=== PATIENT | female | born 1975 | race Caucasian/White ===

== ENCOUNTER 2017-07-16 12:56 | Outpatient (CLI) | payer OTHER ==
--- NOTE | 2017-07-16 16:48 | ULT ---
RIGHT BREAST DIAGNOSTIC ULTRASOUND: Date: 07/16/17 INDICATION: History of palpable abnormality right breast. FINDINGS: Within the right breast 10 o'clock position, 2.0 cm from the nipple, in the region of palpable inter est, there is a lobulated, hypoechoic, irregular mass measuring approximately 3.5 x 1.5 cm. There is an enlarged lymph node within the right axillary region measuring 2.1 x 1.4 cm. IMPRESSION: BIRADS 5: Highly Suggestive of Malignancy Recommend ultrasound guided core biopsy of the right breast lesion, as well as right axillary lymph node. Findings were called to Dr. Alvarez at 1400 hours on 07/16/17. CODE CR. POS: [facility]
--- NOTE | 2017-07-16 16:55 | ULT ---
ULTRASOUND GUIDED RIGHT BREAST MASS BIOPSY AND RIGHT AXILLARY LYMPH NODE BIOPSY: Date: 07/16/17 TECHNIQUE: Informed consent was obtained. The right breast mass within the 10 o'clock position was localized. S ite was prepped and draped in the usual sterile fashion. Buffered 1% lidocaine was administered to t he overlying subcutaneous tissues. A small incision was made into the skin and under ultrasound guid ance, a 14 gauge biopsy needle was guided down to the lesion. Three separate core samples were obtai suyapa. A biopsy clip was placed under ultrasound guidance within the right breast mass lesion. Press ure was held out the biopsy site until hemostasis was obtained. Attention was then paid to the enlarged right axillary lymph node. This site was previously prepped and draped prior to the right breast mass biopsy. The right axillary lymph node was again localized. Buffered 1% lidocaine was administered to the overlying subcutaneous tissues. A small incision was made. A 14 gauge biopsy needle was guided down to the lesion. One core sample was obtained through t he cortex of the enlarged right axillary lymph node. Patient experience some transient shooting pain in the right upper extremity following the initial pass. As the lymph node is adjacent to the axil lexie neurovasculature, biopsied were then obtained utilizing a smaller caliber biopcy core device. Two additional core samples were obtained using a 20 gauge Temno needle. The patient tolerated these core biopsies without difficulty. Pressure was held at both biopsy sites following the biopsies unt il hemostasis was obtained. Patient was neurovascularly intact in the right upper extremity. Good p ulses were felt in the right radial artery with good cap refill. Patient had 5/5 strength in the le ft hand with full sensation. Patient was then escorted to the mammography suite for post biopsy clip mammogram.s IMPRESSION: BIRADS 5: Highly Suggestive of Malignancy Successful ultrasound core biopsy of right breast mass lesion, as well as core samples of the enlarg ed right axillary lymph node. Patient is to have a follow-up right breast mammogram to verify clip d eployment. POS: [facility]
--- NOTE | 2017-07-16 17:10 | MMO ---
RIGHT BREAST DIAGNOSTIC MAMMOGRAM: Date: 07/16/17 INDICATION: New palpable abnormality within the right breast 10 o'clock position. FINDINGS: The right breast parenchyma is extremely dense, which limits the sensitivity of mammography. No mammographic mass is identified. On sonogram of the palpable region of interest, there is an irre gular and lobulated 3.7 x 1.5 cm mass within the right breast 10 o'clock position. Not visible on the mammogram also was an enlarged lymph node within the right axillary region measur ing 2.1 x 1.4 cm. IMPRESSION: BIRADS 5: Highly Suggestive of Malignancy Recommend ultrasound guided core biopsy of the right breast mass lesion as well as the right axillar y enlarged lymph node. Findings called to Dr. Alvarez at 1400 hours on 07/16/17. CODE CR. POS: [facility]
--- NOTE | 2017-07-16 17:11 | MMO ---
RIGHT BREAST POST CLIP MAMMOGRAM: Date: 07/16/17 INDICATION: Right breast mass lesion status post ultrasound guided core biopsy. FINDINGS: Clip is present within the right breast, 10 o'clock position, in the region of interest in the right breast corresponding to a palpable and sonographically visible mass. IMPRESSION: BIRADS 5: Highly Suggestive of Malignancy Status post ultrasound guided core biopsy of the right breast mass lesion in the 10 o'clock position . POS: [facility]
== END 2017-07-16 12:57 | disposition home or self-care (01) ==
LOC: MAMMO 12:56
PROVIDERS: ATTEND Family Medicine
DX: N63.10 Unspecified lump in the right breast, unspecified quadrant (principal)
CPT/HCPCS: 19083; 88305; 88341; 88342; 88360; G0206-RT

== ENCOUNTER 2017-07-23 12:31 | Outpatient (CLI) | payer OTHER ==
--- NOTE | 2017-07-23 18:21 | PET ---
NUCLEAR MEDICINE FDG PET CT: (Positron Emission Tomography) DATE: 07/23/17 HISTORY: 42-year-old female with right breast cancer, initial staging. COMPARISON: None. TECHNIQUE: IV injection F-18 Fluorodeoxyglucose (FDG) dose: 12.0 mCi PET and attenuation-correction CT performed from skull base to proximal thighs. FINDINGS: SUV (standard uptake value) numbers given are maximum SUV's: There is either a single enlarged or a conglomeration of several, right axillary lymph nodes, measur ing approximately 2.5 x 1.5 cm in aggregate, with SUV of 11.5. There is a lesion at the posterior lateral aspect of the right breast with SUV of 17.8. There are no hypermetabolic lesions within the thoracic cavity, abdomen, pelvis, or neck. IMPRESSION: 1. FDG-avid right axillary lymph node. This could represent post surgical/ biopsy changes if there has been biopsy here. If not, this then this is a malignant right axillary lymphadenopathy. 2. FDG-avid lesion in the right outer breast, consistent with post biopsy /postsurgical changes, an d/or residual breast cancer tumor mass. 3. No evidence of distant metastasis. ROBERTO Anthony POS: [facility]
== END 2017-07-23 12:32 | disposition home or self-care (01) ==
LOC: PET 12:31
PROVIDERS: ATTEND Internal Medicine Hematology & Oncology
DX: C50.911 Malignant neoplasm of unspecified site of right female breast (principal)
CPT/HCPCS: 78815; A9552

== ENCOUNTER 2017-07-24 15:03 | Outpatient (CLI) | payer OTHER | END 2017-07-24 15:04 | disposition home or self-care (01) | LOC: LABBT 15:03 | PROVIDERS: ATTEND Surgery | DX: Z01.818 Encounter for other preprocedural examination (principal); C50.911 Malignant neoplasm of unspecified site of right female breast ==

== ENCOUNTER 2017-07-25 10:13 | Day surgery (SDC) | payer OTHER ==
[2017-07-24 15:23] VITALS: BMI 26.1
[2017-07-25] MEDS ORDERED: Midazolam HCl 2 mg/2 ml Vial ONE ×2 (11:17→13:57)
[2017-07-25] MEDS ORDERED: Fentanyl 100 MCG/2 ML VIAL ONE (13:57)
[2017-07-25] MEDS ORDERED: Bupivacaine 0.25% HCL 30 ML VIAL ONE (13:59)
[2017-07-25] MEDS ORDERED: Ondansetron HCl/PF 4 MG/2 ML Vial ONE (14:17)
[2017-07-25] MEDS ORDERED: Dexamethasone 20 MG/5 ML VIAL ONE (14:17)
[2017-07-25] MEDS ORDERED: Lidocaine 1% PF 5 ML VIAL ONE (14:17)
[2017-07-25] MEDS ORDERED: Propofol 200 MG/20 ML VIAL ONE (14:17)
--- NOTE | 2017-07-25 16:52 | RAD ---
SINGLE VIEW OF CHEST: Date: 07/25/17 COMPARISON: None. HISTORY: MediPort placement. Breast cancer. FINDINGS: Single view of the chest shows a normal sized cardiomediastinal silhouette. A left IJ MediPort is se en with its tip in the superior vena cava. No pneumothorax is seen. There is no evidence of consolid ation, mass, or pleural effusion. IMPRESSION: Status post MediPort placement without evidence of complication. POS: [facility]
--- NOTE | 2017-07-26 10:31 | OP ---
PREOPERATIVE DIAGNOSIS: Right breast cancer. POSTOPERATIVE DIAGNOSIS: Right breast cancer. PROCEDURE: Tunneled central line with subcutaneous port (MediPort), CT injectable. SURGEON: Francisco Ferrari M.D. ANESTHESIA: General. ESTIMATED BLOOD LOSS: Minimal. COMPLICATIONS: None. SPECIMEN: None. FINDINGS: Tip of the catheter was at the atriocaval junction. TECHNIQUE: The patient was taken to the operating and laid supine on the operating room supine on t he table. After sedation was obtained, bilateral neck and chest were prepped and draped in a steril e fashion. Local anesthetic infiltrated over the right internal jugular vein. Internal jugular vei n cannulated using a 22-gauge finder needle followed by a Seldinger needle. Wire was passed into th e superior vena cava under fluoroscopic guidance. A small rachel was made at the wire entrance site. A separate 3-cm incision was made in the right upper chest. Subcutaneous pocket made below the low er incision. Tubing for the MediPort tunneled from the inferior to superior incision. Introducer s olena was placed over the wire into the superior vena cava under fluoroscopic guidance. The dilator and wire were removed. The end of the catheter is spread into the sheath as the sheath is peeled a way. The tip of the catheter was at the atriocaval junction. The MediPort tubing is cut to fit the MediPort at the lower incision, connected to the MediPort. The MediPort sewn to the chest wall in the subcutaneous pocket using Prolene. The MediPort flushes and draws blood without difficulty. It is flushed with a heparin flush. The wounds were all irrigated and closed using 3-0 Vicryl, 4-0 Mo nocryl, and Dermabond. The patient was en route to recovery in stable condition. All instrument co unts, needle counts, and lap counts were correct.
== END 2017-07-25 16:38 | disposition home or self-care (01) ==
LOC: SDC 10:13
PROVIDERS: ATTEND Surgery
PROC: 0JH63WZ Insertion of Totally Implantable Vascular Access Device into Chest Subcutaneous Tissue and Fascia, Percutaneous Approach (ICD-10-PCS; principal; 2017-07-25)
DX: C50.911 Malignant neoplasm of unspecified site of right female breast (principal); Z79.899 Other long term (current) drug therapy; Z91.048 Other nonmedicinal substance allergy status; Z96.22 Myringotomy tube(s) status; Z98.818 Other dental procedure status; Z80.3 Family history of malignant neoplasm of breast
CPT/HCPCS: 71010; C1788; J1100; J1642; J2001; J2250; J2405; J2704; J3010; S0020

== ENCOUNTER 2017-09-26 07:16 | Outpatient (CLI) | payer OTHER | END 2017-09-26 07:17 | disposition home or self-care (01) | LOC: BICULT 07:16 | PROVIDERS: ATTEND Internal Medicine Hematology & Oncology | DX: N63.10 Unspecified lump in the right breast, unspecified quadrant (principal) ==

== ENCOUNTER 2017-11-30 17:35 | Observation (INO) | payer OTHER ==
[2017-11-30 18:19] LABS: #Basophils 0.1 thou/uL (0.0-0.2); #Lymphocytes 0.3 thou/uL (1.20-3.40); #Monocytes 0.3 thou/uL (0.11-0.59); %Eosinophils 0.7 % (0.0-10.0); %Lymphocytes 4.8 % (21.0-51.0); %Monocytes 5.6 % (0.0-10.0); Mean Corpuscular HGB CONC 34.7 g/dL (32.0-36.0); Mean Corpuscular Hemoglobin 31.5 pg (27.0-31.0); Mean Corpuscular Volume 90.8 fl (81.0-99.0); Mean Platelet Volume 8.1 fL (7.4-10.4); Platelet Count 146 thou/uL (130-400); RBC Distribution Width 12.9 % (11.5-14.5); White Blood Cell (WBC) Count 5.6 thou/uL (4.8-10.8)
[2017-11-30 18:34] LABS: ALT (SGPT) 19 U/L (8-55); AST (SGOT) 15 U/L (5-34); Albumin 4.2 g/dL (3.5-5.0); Alkaline Phosphatase 45 U/L (40-150); Anion Gap 16 mmol/L (10-20); BUN (Urea Nitrogen) 14 mg/dL (7.0-18.7); Bilirubin, Total 0.3 mg/dL (0.2-1.2); Calc. Creatinine Clearance 0 mL/min (70-130); Calcium 9.5 mg/dL (7.8-10.44); Carbon Dioxide 20 mmol/L (22-29); Chloride 105 mmol/L (98-107); Estimated GFR-MDRD Greater than 90; Globulin 2.7 g/dL (2.4-3.5); Glucose 104 mg/dL (70-105); Potassium 3.5 mmol/L (3.5-5.1); Protein, Total 6.9 g/dL (6.0-8.3); Sodium 137 mmol/L (136-145)
--- NOTE | 2017-11-30 18:35 | RAD ---
PORTABLE CHEST: 11/30/17 HISTORY: Fever. Lung lee are clear. No evidence of infiltrate. Heart and mediastinum unremarkable. IMPRESSION: No acute abnormality identified. POS: [facility]
[2017-11-30] MEDS ORDERED: Piperacillin/Tazobactam 3.375 GM VIAL ONE ×2 (18:53→19:02)
[2017-11-30] MEDS ORDERED: Sodium Chloride 0.9% 100 ML ONE ×2 (18:53→19:02)
[2017-11-30 19:20] LABS: Bilirubin Negative (Negative); Blood, Urine Negative (Negative); Clarity Clear (Clear); Glucose, Urine (Dipstick) Negative (Negative); Leukocyte Negative (Negative); Nitrite Negative (Negative); Protein, Urine (Dipstick) Negative (Neg-Trace); Urobilinogen 0.2 mg/dL (0.2-1.0)
[2017-11-30 19:21] LABS: Specific Gravity, Urine 1.007 (1.002-1.036)
[2017-11-30] MEDS ORDERED: Ondansetron ODT 4 MG TAB SL PRN (21:09)
[2017-11-30] MEDS ORDERED: Ondansetron PF 4 MG/2 ML Vial IVP PRN (21:09)
[2017-11-30 22:14] VITALS: BMI 26.6
[2017-11-30] MEDS: Sodium Chloride 0.9% 1,000 ML IV SCH (22:35)
[2017-12-01] MEDS ORDERED: Ibuprofen 600 MG TAB PO PRN (00:13)
[2017-12-01] MEDS ORDERED: Acetaminophen 325 MG TAB PO PRN ×2 (00:13→00:14)
[2017-12-01] MEDS ORDERED: HYDROcodone/Acetaminophen 5/325 mg Tablet PO PRN (00:14)
[2017-12-01] MEDS: Piperacillin/Tazobactam 3.375 GM in Sodium Chloride 0.9% 100 ML IVPB SCH ×5 (00:21→23:43)
[2017-12-01] MEDS ORDERED: Sodium Chloride 0.9% 10 ML ONE (02:11)
--- NOTE | 2017-12-01 02:42 | HP ---
PRESENTING COMPLAINT: Fever. HISTORY OF PRESENT ILLNESS: A 42-year-old female with a past medical history of breast cancer, who j ust finished chemotherapy and has had a port placed in the left chest, who presented with 1-day histo ry of generalized malaise, aches and fever. Last Saturday, she reported some fever and erythema over h er port site. She was started on levofloxacin orally on Saturday and report was taken off on Saturday. She felt better and then yesterday she developed fevers, generalized weakness and aches. She checke d her blood pressure and it was 81/47 with a heart rate in the 120s. She reportedly drank lots of fl uids with improvement in her blood pressure and heart rate. Today, she was able to move around and d eveloped chills with temperature of 102.2 degree Fahrenheit for which she then presented to the emerg ency room. PAST MEDICAL HISTORY: Breast cancer. PAST SURGICAL HISTORY: None. FAMILY HISTORY: Mother was diagnosed with breast cancer. Other family history noncontributory. ALLERGIES: No known drug allergies. SOCIAL HISTORY: Does not drink alcohol, smoke cigarettes or use illicit drugs. REVIEW OF SYSTEMS: A 12-point review of systems was done and negative apart from as stated in HPI. PHYSICAL EXAMINATION: VITAL SIGNS: Temperature 98.4 degree Fahrenheit, pulse 102, respiratory rate 12, oxygen saturation 1 00% on room air, blood pressure 105/68. GENERAL: Not in acute distress, sitting comfortably in bed, eating dinner. HEENT: Normocephalic, atraumatic. Not pale, anicteric. PERRLA, EOMI. RESPIRATORY/CHEST: Vesicular breath sounds bilaterally. No wheezes or rales. CARDIOVASCULAR: S1 and S2 only. Slight tachycardia. No murmurs, rubs or gallops. ABDOMEN: Bowel sounds positive, nontender, nondistended, no organomegaly. GENITOURINARY: Deferred. SKIN: Scar of port site with erythema, but no other signs of infection. MUSCULOSKELETAL: No skeletal abnormalities. Moving all extremities spontaneously. NEUROLOGIC: Alert and well oriented to time, place and person. No focal deficits. PSYCHIATRIC: Normal mood and affect. LABORATORY DATA: CBC unremarkable. Serum chemistry also largely unremarkable. Urinalysis was not a bnormal. Chest x-ray showed no acute abnormalities. ASSESSMENT AND PLAN: 1. Sepsis. This is likely from infection of her port site, port has since been removed. Blood cult ures have been taken and will be followed. She is currently being placed on broad-spectrum antibioti cs with vancomycin and Zosyn. We will also give parenteral hydration. We will follow up blood cultu res. 2. Breast cancer. She recently completed chemotherapy and is scheduled for lumpectomy and sentinel node biopsy.
[2017-12-01] MEDS: Sodium Chloride 0.9% 1,000 ML IV SCH ×3 (05:38→19:27)
[2017-12-01 05:43] LABS: #Eosinphils 0.1 thou/uL (0.0-0.7); #Lymphocytes 0.2 thou/uL (1.20-3.40); #Monocytes 0.3 thou/uL (0.11-0.59); #Neutrophils 1.3 thou/uL (1.40-6.50); %Eosinophils 2.8 % (0.0-10.0); %Lymphocytes 12.5 % (21.0-51.0); %Monocytes 14.5 % (0.0-10.0); %Neutrophils 70.2 % (42.0-75.0); Hemoglobin 9.7 g/dL (12.0-16.0); Mean Corpuscular HGB CONC 33.3 g/dL (32.0-36.0); Mean Corpuscular Hemoglobin 32.6 pg (27.0-31.0); Mean Platelet Volume 7.7 fL (7.4-10.4); Platelet Count 129 thou/uL (130-400); RBC Distribution Width 13.7 % (11.5-14.5); Red Blood Cell (RBC) Count 2.97 mill/uL (4.20-5.40); White Blood Cell (WBC) Count 1.8 thou/uL (4.8-10.8)
[2017-12-01 05:54] LABS: Anion Gap 9 mmol/L (10-20); BUN (Urea Nitrogen) 13 mg/dL (7.0-18.7); Calc. Creatinine Clearance 149 mL/min (70-130); Calcium 8.3 mg/dL (7.8-10.44); Carbon Dioxide 22 mmol/L (22-29); Chloride 112 mmol/L (98-107); Estimated GFR-MDRD Greater than 90; Glucose 99 mg/dL (70-105); Potassium 3.5 mmol/L (3.5-5.1); Sodium 139 mmol/L (136-145)
[2017-12-01] MEDS: Vancomycin HCl 1.5 GM in Sodium Chloride 0.9% 250 ML 300 ML IVPB SCH ×2 (09:06→19:58)
[2017-12-01] MEDS: GLUTAMINE 15 GM PO SCH ×2 (09:07→19:59)
[2017-12-01] MEDS: Cholecalciferol (Vitamin D3) 5,000 UNIT PO SCH (09:07)
[2017-12-01] MEDS ORDERED: Oseltamivir 75 MG CAP PO SCH (10:00)
--- NOTE | 2017-12-01 11:53 | PDOC.PN ---
- Subjective Encounter Start Date: 12/01/17 Encounter Start Time: 07:20 Pt seen for followup re: sepsis. Reports chronic cough. No overnight fevers. No dysuria or increased frequency of urination. No nausea, vomiting or diarrhea. - Objective Resuscitation Status: Resuscitation Status FULL:Full Resuscitation MAR Reviewed: Yes Vital Signs & Weight: Vital Signs (12 hours) Temp Pulse Resp BP Pulse Ox 12/01/17 11:30 98.3 F 96 16 99/59 L 98 12/01/17 08:00 98 F 97 14 111/64 97 12/01/17 04:00 98.0 F 87 18 102/66 100 12/01/17 00:00 98.4 F 101 H 20 105/68 100 Weight Weight 181 lb 8 oz I&O: 11/30/17 12/01/17 12/02/17 06:59 06:59 06:59 Intake Total 2908 Output Total 1100 Balance 1808 Result Diagrams: 12/02/17 04:09 12/02/17 04:09 EKG Reviewed by me: Yes (Tele: sinus tachycardia) Phys Exam - Physical Examination Constitutional: NAD HEENT: moist MMs Neck: supple Respiratory: clear to auscultation bilateral S1, S2, tachy, reg Gastrointestinal: soft Neurological: moves all 4 limbs Psychiatric: normal affect Skin: no rash Dx/Plan (1) Sepsis Code(s): A41.9 - SEPSIS, UNSPECIFIED ORGANISM Status: Acute (2) Breast cancer Status: Chronic - Plan continue antibiotics, out of bed/ambulate * . Consult ID and hematology. Follow cultures. Start empiric Tamiflu (? false negative influenza screen). Review of Systems - Review of Systems Respiratory: Cough. negative: Dry, Shortness of Breath, Hemoptysis, SOB with Excertion, Pleuritic Pain, Sputum, Wheezing Cardiovascular: negative: chest pain, palpitations, orthopnea, paroxysmal nocturnal dyspnea, edema, light headedness - Medications/Allergies Allergies/Adverse Reactions: Allergies Allergy/AdvReac Type Severity Reaction Status Date / Time adhesive Allergy Verified 11/30/17 22:00 Medications: Current Medications Acetaminophen (Tylenol) 650 mg PO Q4H PRN PRN Reason: Headache/Fever or Pain Hydrocodone Bitart/Acetaminophen ([place] 5/325) 1 tab PO Q4H PRN PRN Reason: Moderate Pain (4-6) Piperacillin Sod/Tazobactam (Sod 3.375 gm/ Sodium Chloride) 100 mls @ 200 mls/ hr IVPB Q6HR [facility] Last Admin: 12/01/17 11:07 Dose: 100 mls Vancomycin HCl 1.5 gm/ Sodium (Chloride) 300 mls @ 200 mls/hr IVPB 0800,2000 [facility] Last Admin: 12/01/17 09:06 Dose: 300 mls Sodium Chloride (Normal Saline 0.9%) 1,000 mls @ 100 mls/hr IV .Q10H [facility] Last Admin: 12/01/17 10:13 Dose: 1,000 mls Ibuprofen (Motrin) 600 mg PO Q6H PRN PRN Reason: Moderate Pain (4-6) Last Admin: 12/01/17 00:28 Dose: 600 mg Miscellaneous Medication (Pharmacy To Dose) 0 each IVPB PRN PRN PRN Reason: VANC/RENAL PHARMACY TO DOSE Oseltamivir Phosphate (Tamiflu) 75 mg PO Q12HR [facility] Stop: 12/05/17 21:01 Oseltamivir Phosphate (Tamiflu) 75 mg PO NOW [facility] Stop: 12/01/17 12:00 Last Admin: 12/01/17 10:14 Dose: 75 mg Cholecalciferol ( Vitamin D3) 5,000 Unit 0 each PO DAILY [facility] Last Admin: 12/01/17 09:07 Dose: 1 each Glutamine [L- (Glutamine] 15 Gm) 0 each PO BID [facility] Last Admin: 12/01/17 09:07 Dose: 1 each Sodium Chloride (Flush - Normal Saline) 10 ml IVF Q12HR [facility] Last Admin: 12/01/17 09:07 Dose: 10 ml Sodium Chloride (Flush - Normal Saline) 10 ml IVF PRN PRN PRN Reason: Saline Flush
--- NOTE | 2017-12-01 13:26 | CON ---
DATE OF CONSULTATION: 12/01/2017 REASON FOR CONSULTATION: Breast cancer, fever. HISTORY: This is a 42-year-old female with a T2 N1 invasive ductal carcinoma of the right breast diagnosed in 07/2017. She had ER positive, HER-2 negative disease. She was started neoadjuva nt chemotherapy with Taxotere and Cytoxan and finished cycle 6 on 11/13/2017. Subsequently, she deve loped a MediPort site infection and MediPort was explanted. She was treated with Levaquin. However, 2 days ago, she developed increasing redness. On the day of admission, she had chills and temperatu re up to 102 and was admitted for intravenous antibiotics. She was also hypotensive at the time of a dmission. Today, she is feeling better and is afebrile. PAST MEDICAL HISTORY: Negative. PAST SURGICAL HISTORY: Negative. FAMILY HISTORY: Her mother had breast cancer. DRUGS WITH ADVERSE EFFECT: None. 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 She does not smoke and does not drin k. REVIEW OF SYSTEMS: Twelve point system review was negative except for findings mentioned in the hist ory of present illness. PHYSICAL EXAMINATION: GENERAL: The patient is alert and oriented. VITAL SIGNS: Height 5 feet 9 inches, weight 181, temperature, she has been afebrile during this hosp italization and temperature today is 98.3, pulse ox is 96, respirations 16, blood pressure 99/59. HEENT: Unremarkable. EYES: Extraocular movements intact. Pupils equal in size. NECK: No thyromegaly. LYMPH NODES: Not palpable in cervical, supraclavicular, axillary and inguinal areas. SKIN: No petechiae. No purpuric spots. CHEST: No deformity. Percussion notes equal bilaterally. Breath sounds vesicular without rales or rhonchi or pleural rub. BREASTS: Left without mass and nipple retraction. Right breast still has fullness especially in the upper outer quadrant. CARDIOVASCULAR SYSTEM: PMI not displaced. Rhythm regular. S1, S2 normal. No murmur or pericardial rub. ABDOMEN: Soft. No hepatosplenomegaly. No other masses were palpable. No ascites. Bowel sounds normal. SPINE: No deformity or tenderness. EXTREMITIES: No calf tenderness. LABORATORY AND X-RAY FINDINGS: CBC shows WBC of 1800 with hemoglobin of 9.7 and platelet count of 12 9,000. Differential shows 70% neutrophils. Chemistry profile is essentially normal. Chest x-ray no rmal. ASSESSMENT AND RECOMMENDATIONS: The patient has responded appropriately to treatment with vancomycin and Zosyn. Dr. Bermeo has been consulted and we expect to discontinue Tamiflu. Her CBC will have to be monitored. I do not think she will develop further neutropenia. Thanks very much for asking me to see this patient. The patient will be followed by Oncology Service while she is in the hospital.
--- NOTE | 2017-12-01 15:49 | CON ---
DATE OF CONSULTATION: 12/01/2017 REASON FOR CONSULTATION: Fever. HISTORY OF PRESENT ILLNESS: A 42-year-old who has a history of recently diagnosed breast cancer whic h has been managed with adjuvant chemotherapy with plans for lumpectomy and sentinel lymph node evalu ation. Patient was treated via port in the left chest area and she finished her last chemo course in the beginning of November and the port was removed after she developed inflammatory changes at the e xit site without evidence of tunnel tract involvement. Patient was given levofloxacin and because of development of fever, tachycardia, hypotension, she has been admitted. Currently, she is feeling be tter. She has minor tenderness at the site of the pocket. She denies headaches, visual symptoms, so re throat, odynophagia, dysphagia, no cough or sputum production or chest pain, no abdominal pain or diarrhea. No genitourinary symptoms. No joint symptoms. No neurological symptoms. PAST MEDICAL HISTORY: Recently diagnosed breast cancer. PAST SURGICAL HISTORY: Port placement and recent removal. FAMILY HISTORY: Breast cancer. ALLERGIES: None. SOCIAL HISTORY: Never a smoker. No illicit drug use. CURRENT MEDICATIONS: [place], Motrin, Tamiflu, cholecalciferol, Zosyn, and vancomycin. PHYSICAL EXAMINATION: VITAL SIGNS: Temperature max 98.4, blood pressure 99/59, pulse 96, respirations 16, O2 sat 98%. GENERAL: Appears in no distress. NECK: The left side of the neck with still indurated area where the catheter had been tunneled. The re is no tenderness along the previous catheter tunnel site. There is a little bit of tenderness at the previous port site. Patient has a peripheral IV access. LUNGS: Clear to auscultation and percussion. HEART: S1 and S2, regular rate. ABDOMEN: Soft and nondistended. No ascites. No bladder distention. EXTREMITIES: No joint inflammatory activity. No back tenderness. Moves all extremities equally. LABORATORY DATA AND X-RAY FINDINGS: White cell count 5.6 and 1.8, hemoglobin 11, platelets 129 with 70% neutrophils. Chemistry within normal limits except for elevation of chloride. Urinalysis was es sentially normal. Two sets of blood cultures are pending at this time. The patient had a chest x-ra y which showed no acute abnormality identified. ASSESSMENT: Breast cancer status post adjuvant chemotherapy scheduled for a lumpectomy and sentinel lymph node evaluation, now with fever and evidence of inflammatory changes at the previous port site and port has been removed. DISCUSSION: Differential diagnosis includes port infection with bacteremia. We will have to monitor blood culture results. We will submit respiratory virus PCR panel to complete evaluation for jovanny lozano since patient has been started on Tamiflu empirically. The initial influenza test was negative, but that is less sensitive test. Continue with Zosyn and vancomycin, monitor blood culture results. If blood cultures are negative, then hopefully transition to oral antimicrobial therapy, probably a combination of quinolone plus minocycline. If blood cultures are positive, then we will adjust thera py accordingly. The patient is scheduled for the lumpectomy and sentinel lymph node evaluation. If it is felt that the schedule for the procedures is important to decrease the risk of subsequent recur rence, I would believe that it would be in the patient's best interest to maintain the schedule for l umpectomy as long as she is on antimicrobial therapy. Otherwise, if it can be postponed without any detrimental effects for the patient in terms of malignancy control and decrease of recurrence risk, i t would be postponed until the infection has resolved.
[2017-12-01] MEDS: Oseltamivir 75 MG CAP PO SCH (19:58)
[2017-12-02 05:20] LABS: Anion Gap 11 mmol/L (10-20); BUN (Urea Nitrogen) 10 mg/dL (7.0-18.7); Calc. Creatinine Clearance 142 mL/min (70-130); Calcium 9.1 mg/dL (7.8-10.44); Carbon Dioxide 23 mmol/L (22-29); Chloride 111 mmol/L (98-107); Estimated GFR-MDRD Greater than 90; Glucose 92 mg/dL (70-105); Potassium 3.9 mmol/L (3.5-5.1); Sodium 141 mmol/L (136-145)
[2017-12-02] MEDS: Piperacillin/Tazobactam 3.375 GM in Sodium Chloride 0.9% 100 ML IVPB SCH (05:33)
[2017-12-02 06:04] LABS: Band 4 % (5-11); Eosinophils 1 % (0-10); Hemoglobin 10.3 g/dL (12.0-16.0); Lymphocytes 41 % (21-51); MDiff Complete? YES; Macrocytosis SLIGHT = 6-15 cells (100X) (0-5/hpf); Mean Corpuscular HGB CONC 33.2 g/dL (32.0-36.0); Mean Corpuscular Hemoglobin 33.1 pg (27.0-31.0); Mean Corpuscular Volume 99.5 fl (81.0-99.0); Mean Platelet Volume 8.1 fL (7.4-10.4); Metamyelocyte 1 % (0-0); Monocytes 21 % (0-10); Neutrophil 28 % (42-75); PLT Morphology Comment Appears Adequate; Platelet Count 152 thou/uL (130-400); RBC Distribution Width 13.8 % (11.5-14.5); Reactive Lymphocytes 4 % (0-10); Red Blood Cell (RBC) Count 3.12 mill/uL (4.20-5.40); White Blood Cell (WBC) Count 1.7 thou/uL (4.8-10.8)
[2017-12-02] MEDS: Vancomycin HCl 1.5 GM in Sodium Chloride 0.9% 250 ML 300 ML IVPB SCH (09:21)
[2017-12-02] MEDS: Oseltamivir 75 MG CAP PO SCH (09:22)
[2017-12-02] MEDS: Cholecalciferol (Vitamin D3) 5,000 UNIT PO SCH (09:23)
[2017-12-02] MEDS: GLUTAMINE 15 GM PO SCH (09:24)
--- NOTE | 2017-12-02 11:11 | PRG ---
DATE OF SERVICE: 12/02/2017 SUBJECTIVE: Feeling better and no more fever. No headaches. Minor tenderness at the previous port site. No cough or sputum production or chest pain. No abdominal pain or diarrhea. No genitourinary symptoms. No joint symptoms. OBJECTIVE: VITAL SIGNS: Temperature has normalized. Other vital signs are normal. GENERAL: Awake, alert, oriented. LUNGS: Clear. HEART: S1, S2, regular rate. ABDOMEN: Soft. LABORATORY DATA: Left port's previous port site unchanged. Blood culture, no growth thus far. Whit e cell count 1.7, hemoglobin 10, platelets 152, 28% neutrophils, 4% bands, 41% lymphocytes, and total neutrophil count about 400-500. ASSESSMENT AND DISCUSSION: Breast cancer, status post adjuvant chemotherapy with fever, probably ass ociated with the infection of the port. This has been removed. Blood cultures thus far negative. The patient declined influenza PCR test. She is currently on Tamiflu to be continued for another few days. If blood cultures remain negative through the final call, then patient to continue on oral Le vaquin alone. Could consider discharge planning on oral Levaquin and then make sure to follow up the blood culture final results. Follow up with me in the clinic in 1-2 weeks.
[2017-12-02 12:09] VITALS: BP 100/62; TEMP 98.1
--- NOTE | 2017-12-02 12:27 | DIS ---
DATE OF ADMISSION: 11/30/2017 DATE OF DISCHARGE: 12/02/2017 PRIMARY CARE PROVIDER: Araceli Melo MD DATE OF ADMISSION 11/30/2017 discharge DISCHARGE DIAGNOSES: 1. Sepsis. 2. Probable influenza infection. 3. Neutropenia. CONSULTATIONS DURING THIS HOSPITALIZATION: Infectious diseases, Dr. Bermeo. and Oncology, Dr. Elaina montalvo. CONDITION OF PATIENT ON THE DAY OF DISCHARGE: Stable. I assessed Mr. Harrison on the day of discharg e. She denies any chest pain or shortness of breath. No fevers. Vital signs are stable. S1 and S2 are heard, regular. Lungs are clear to auscultation bilaterally. INVESTIGATIONS DURING THIS HOSPITALIZATION: Chest x-ray on 11/30/2017, which did not show any acute intrathoracic abnormality. Urinalysis was normal on 11/30/2017. HOSPITAL COURSE: Mr. Harrison is a pleasant 42-year-old lady who was admitted to [facility] for sepsis. She was treated with intravenous antibiotics. She had a negative influenz a screen. It was felt that influenza screen was false negative given her symptoms. She has been sta rted on Tamiflu. She should continue Tamiflu for 8 more doses. She was seen by Infectious Diseases and Oncology Services. She has been advised to continue oral fluoroquinolones. She has also been ad vised to follow up with her primary care physician for final culture results. She was also neutropen ic during this admission. She was seen by Oncology Service for the same. Many thanks for allowing me to participate in your patient's care. Please feel free to contact me if any questions or concerns. On the day of discharge, she has normal sodium, normal potassium, elevated chloride of 111, normal cr eatinine, white count 1700, of which 28% are neutrophils, 4% bands, decreased hemoglobin of 10.3 and platelet count of 152,000. Her platelet count was low at 129,000 on 12/01/2017. DISCHARGE MEDICATIONS: Vitamin D3 5000 units daily, L-glutamine 50 mg 2 times a day, Levaquin 750 mg daily, Tamiflu 75 mg 2 times a day for 8 more doses. DISCHARGE DESTINATION: Home. TOTAL AMOUNT OF TIME SPENT COORDINATING THIS DISCHARGE: 19 minutes.
== END 2017-12-02 15:01 | disposition home or self-care (01) ==
LOC: SCSER 17:35 → INTOOBSV 21:05 → 2NO 21:05
PROVIDERS: ADMIT Internal Medicine; ATTEND Internal Medicine
DX: A41.9 Sepsis, unspecified organism (principal); D70.9 Neutropenia, unspecified; R05 Cough; C50.911 Malignant neoplasm of unspecified site of right female breast; Z17.0 Estrogen receptor positive status [ER+]; Z92.21 Personal history of antineoplastic chemotherapy
CPT/HCPCS: 36415; 71045; 80048; 80053; 81003; 83605; 85025; 87040; 96361; 96365; 96367; J2543; J3370; J7050

== ENCOUNTER 2017-12-03 13:01 | Inpatient (IN) | payer OTHER ==
[2017-12-03] MEDS ORDERED: Acetaminophen 325 MG TAB PO PRN (13:35)
[2017-12-03] MEDS ORDERED: Ondansetron PF 4 MG/2 ML Vial IVP PRN (13:35)
[2017-12-03] MEDS ORDERED: Ondansetron ODT 4 MG TAB PO PRN (13:36)
[2017-12-03] MEDS ORDERED: Sodium Chloride 0.9% 1,000 ML IV SCH (13:45)
[2017-12-03 13:59] LABS: #Basophils 0.1 thou/uL (0.0-0.2); #Lymphocytes 0.2 thou/uL (1.20-3.40); #Monocytes 0.4 thou/uL (0.11-0.59); #Neutrophils 5.5 thou/uL (1.40-6.50); %Basophils 1.3 % (0.0-1.0); %Eosinophils 0.6 % (0.0-10.0); %Lymphocytes 3.5 % (21.0-51.0); %Monocytes 6.1 % (0.0-10.0); %Neutrophils 88.6 % (42.0-75.0); Hemoglobin 10.4 g/dL (12.0-16.0); Mean Corpuscular HGB CONC 33.8 g/dL (32.0-36.0); Mean Corpuscular Hemoglobin 32.5 pg (27.0-31.0); Mean Corpuscular Volume 96.3 fl (81.0-99.0); Mean Platelet Volume 7.7 fL (7.4-10.4); Platelet Count 161 thou/uL (130-400); RBC Distribution Width 13.7 % (11.5-14.5); White Blood Cell (WBC) Count 6.2 thou/uL (4.8-10.8)
[2017-12-03 14:07] LABS: Anion Gap 10 mmol/L (10-20); BUN (Urea Nitrogen) 14 mg/dL (7.0-18.7); Calc. Creatinine Clearance 0 mL/min (70-130); Calcium 9.1 mg/dL (7.8-10.44); Carbon Dioxide 25 mmol/L (22-29); Chloride 107 mmol/L (98-107); Estimated GFR-MDRD 86; Glucose 98 mg/dL (70-105); Potassium 3.6 mmol/L (3.5-5.1); Sodium 138 mmol/L (136-145)
[2017-12-03] MEDS: Sodium Chloride 0.9% 1,000 ML IV SCH ×4 (14:19→21:57)
[2017-12-03 14:34] VITALS: BMI 26.2
[2017-12-03] MEDS ORDERED: Vancomycin HCl 1 GM in Premix Bag 1 BAG IVPB SCH (15:00)
[2017-12-03] MEDS: Piperacillin/Tazobactam 3.375 GM, Admixture Fee 1 EACH in Sodium Chloride 0.9% 100 ML IVPB SCH (19:28)
--- NOTE | 2017-12-03 20:10 | PRG ---
DATE OF SERVICE: 12/03/2017 SUBJECTIVE: Ms. Harrison has been readmitted with recrudescence of fever and chills, felt weak, other garnica no headaches or maybe a little bit of headaches. No visual symptoms, a little bit of cough, but no sputum production, no sore throat or toothache, no back pain, no abdominal pain. Had some loose stool. No joint symptoms. She has been restarted on Zosyn and vancomycin. She is currently afebril e and a little bit tachycardic. OBJECTIVE: VITAL SIGNS: O2 sat 97% on room air. GENERAL: Appears in no distress. HEENT: Ocular movements are conjugate. Oral cavity normal. LUNGS: Clear. HEART: S1, S2, regular rate. ABDOMEN: Soft, not distended, no joint inflammatory activity. The previous tunneled catheter site s till with the tunnel area, but no inflammatory changes noted, a little bit of itching, but no pain or drainage. Has some loose stools earlier. LABORATORY DATA: White cell count 6.2, hemoglobin 10.4, platelets 161, 88% neutrophils. Chemistry n ormal. Two sets of blood cultures have been redrawn and they are pending at this time. ASSESSMENT: Breast cancer status post chemo with presumed infection of the port site, which has been removed now. The patient has been readmitted after recent stay at the hospital for fever and neutro penia. The patient's white cell count has recovered and the patient appears now without any focal in flammatory process. DISCUSSION: Today differential diagnosis includes again resistant pathogen associated with the recen t port inflammatory process, which failed Levaquin in the outpatient setting. She does not have any focal findings at this time except for the port site with the tunnel area, but no inflammatory change s noted. The other possibility would be of viral infection that is resolving. With resolution of neutropenia, I predict that she is going to remain afebrile in the hospital and then in 1-2 days, we will have to decide discharge planning about what antimicrobials to use if the cultures are negat mike. Evidently, if they return positive, then we will have to guided by the results.
[2017-12-03] MEDS: Oseltamivir 75 MG CAP PO SCH (20:29)
[2017-12-03] MEDS: GLUTAMINE 15 GM PO SCH (20:30)
[2017-12-03] MEDS: Vancomycin HCl 1 GM in Premix Bag 1 BAG IVPB SCH (23:19)
[2017-12-04] MEDS: Piperacillin/Tazobactam 3.375 GM, Admixture Fee 1 EACH in Sodium Chloride 0.9% 100 ML IVPB SCH ×5 (01:17→23:01)
[2017-12-04] MEDS: Sodium Chloride 0.9% 1,000 ML IV SCH (04:30)
[2017-12-04] MEDS: Vancomycin HCl 1 GM in Premix Bag 1 BAG IVPB SCH (07:14)
--- NOTE | 2017-12-04 08:07 | HP ---
CHIEF COMPLAINT: Fever, chills. HISTORY OF PRESENT ILLNESS: This is a 42-year-old female who finished her neoadjuvant chemo for her T2 N1 right breast cancer, admitted a few days ago with neutropenic fever. [facility], discharged home on Levaquin. Started to have fevers again. I readmitte d her to the hospital. She denies pain. She feels better now. PAST MEDICAL HISTORY: Includes breast cancer metastasized to regional nodes, but with near complete clinical response to neoadjuvant chemo. PAST SURGICAL HISTORY: MediPort removal few days ago in my office for redness to the MediPort. ALLERGIES: No known drug allergies. SOCIAL HISTORY: No smoking, alcohol or other drugs. REVIEW OF SYSTEMS: Ten system review of systems otherwise negative unless described above. PHYSICAL EXAMINATION: VITAL SIGNS: Pulse is 107, blood pressure is 98/63. She is afebrile. CHEST: Clear. HEART: Regular rate and rhythm. ABDOMEN: Soft, nontender. MediPort site, Steri-Strips are intact. There is no obvious purulence or erythema to the wound. LABORATORY DATA: Creatinine is 0.75 and her white count is now up to 6.2. ASSESSMENT: Neutropenic fever. PLAN: Readmission for vancomycin, Zosyn, reculture, Dr. Bermeo notified of her room number.
[2017-12-04] MEDS ORDERED: Ibuprofen 800 MG TAB PO PRN (09:29)
[2017-12-04] MEDS ORDERED: Sodium Chloride 0.9% 1,000 ML IV SCH (09:29)
--- NOTE | 2017-12-04 09:29 | PDOC.GSPN ---
Surgery Progress Note: Subj - Subjective Narrative: c/o headache Surgery Progress Note: Obj - Vital signs Vital signs: Vital Signs - Most Recent Temp Pulse Resp BP Pulse Ox 99.2 F 89 16 100/60 99 12/04/17 07:40 12/04/17 07:40 12/04/17 07:40 12/04/17 07:40 12/04/17 07:40 - Physical Exam General: no distress Surgery Progress Note: Results - Labs Result Diagrams: 12/03/17 13:46 12/03/17 13:42 Surgery Progress Note: A/P - Problem (1) Neutropenic fever Current Visit: Yes Code(s): D70.9 - NEUTROPENIA, UNSPECIFIED; R50.81 - FEVER PRESENTING WITH CONDITIONS CLASSIFIED ELSEWHERE Status: Acute Assessment and Plan: on vanc/zosyn. Home tomorrow potentially if no fevers
[2017-12-04] MEDS: CHOLECALCIFEROL 5000 UNIT PO SCH (09:38)
[2017-12-04] MEDS: GLUTAMINE 15 GM PO SCH ×2 (09:38→20:42)
[2017-12-04] MEDS: Oseltamivir 75 MG CAP PO SCH ×2 (09:45→20:42)
[2017-12-04 14:43] LABS: Vancomycin, Trough 13.4 ug/mL
[2017-12-04] MEDS: Vancomycin HCl 1.25 GM in Sodium Chloride 0.9% 250 ML 250 ML IVPB SCH ×2 (15:57→23:02)
[2017-12-04] MEDS: Loratadine 10 MG TAB PO PRN (16:18)
[2017-12-04] MEDS: Fluticasone Propionate Nasal Spray 16 gm Bottle NASAL SCH (16:27)
--- NOTE | 2017-12-04 20:21 | PRG ---
DATE OF SERVICE: 12/04/2017 SUBJECTIVE: A little bit of cough, dry mostly, some nasal discharge, purulent in the morning, but leong s subsided down since then. No headaches, no chest pain, no abdominal pain, no diarrhea. OBJECTIVE: VITAL SIGNS: T-max 99.3. Apparently, she remembers being 100, but it is not recorded by the nurse. Blood pressure 90/55, pulse 89, respirations 16, O2 sat 98%. GENERAL: Appears no distress. HEENT: Ocular movements conjugate. Some nasal obstipation. Oral cavity normal. NECK: Supple. LUNGS: Symmetric clear breath sounds. CARDIOVASCULAR: S1, S2, regular rate. No S3, S4, no murmurs. ABDOMEN: Soft and not distended. Port site has no inflammatory changes and not as prominent, partic ularly in reference to the tunnel area. EXTREMITIES: Moves all extremities equally. LABORATORY DATA: The white cell count has not been repeated. Vancomycin trough 13.4. ASSESSMENT: Breast cancer status post chemo with presumed infection of port site, which has been rem suzi. A little bit of cough, some nasal symptoms, although the possibility of viral infection has no t been ruled out. The most likely scenario is a port associated infection. Blood cultures thus far negative, all 4 sets, the first two final result. The next two sets being retrieved, still a few mor e days to go for final results. Plan is to continue vancomycin and Zosyn, and tomorrow transition to Omnicef and Zyvox for discharge planning for another 7 days, Flonase and Claritin for nasal symptoms , possibility of sinusitis is considered.
[2017-12-05] MEDS: Piperacillin/Tazobactam 3.375 GM, Admixture Fee 1 EACH in Sodium Chloride 0.9% 100 ML IVPB SCH ×2 (06:08→12:18)
[2017-12-05] MEDS: Vancomycin HCl 1.25 GM in Sodium Chloride 0.9% 250 ML 250 ML IVPB SCH (06:45)
[2017-12-05] MEDS: GLUTAMINE 15 GM PO SCH (09:01)
[2017-12-05] MEDS: CHOLECALCIFEROL 5000 UNIT PO SCH (09:01)
[2017-12-05] MEDS: Loratadine 10 MG TAB PO PRN (09:01)
[2017-12-05] MEDS: Fluticasone Propionate Nasal Spray 16 gm Bottle NASAL SCH (09:02)
[2017-12-05 09:13] VITALS: BP 101/64; TEMP 97.8
--- NOTE | 2017-12-05 11:48 | PRG ---
DATE OF SERVICE: 12/05/2017 SUBJECTIVE: Feeling well. Nasal symptoms are improved. Still with a little bit of purulence earlie r this morning with some blood from the nostrils. No headaches, no pain in the paranasal area. No c hest pain, a little bit of cough, no abdominal pain or diarrhea or genitourinary symptoms. The left previous port site is not tender. OBJECTIVE: VITAL SIGNS: T-max 98-99.3, blood pressure 101/64, pulse 88, respirations 16. GENERAL: Appears in no distress. HEENT: Patency of nasal passages improved. LUNGS: Clear to auscultation and percussion. HEART: S1, S2, regular rate. ABDOMEN: Soft, not distended. EXTREMITIES: The left-sided previous port site without inflammatory changes noted. LABORATORY DATA: No new labs to evaluate. Blood cultures negative thus far in all four specimens. ASSESSMENT AND DISCUSSION: Breast cancer with adjuvant chemotherapy being prepared for lumpectomy an d lymphadenectomy now with what appears to be either port complication with possible early infection versus sinusitis. Plan is to transition her to oral Zyvox and Augmentin for discharge planning. Follow up in the outpa tient setting.
[2017-12-05] MEDS: Oseltamivir 75 MG CAP PO SCH (12:19)
--- NOTE | 2017-12-05 13:03 | DIS ---
DATE OF ADMISSION: 12/03/2017 DATE OF DISCHARGE: 12/05/2017 ADMISSION DIAGNOSIS: Neutropenic fever. DISCHARGE DIAGNOSIS: Neutropenic fever. PROCEDURES: None. CONSULTANTS: Dr. Bermeo. CONDITION AT DISCHARGE: Improved. STAFF: Francisco Ferrari M.D. HOSPITAL COURSE: The patient was admitted and placed back on vancomycin and Zosyn. She was afebrile for 48 hours. She is being discharged on Zyvox and Augmentin by Dr. Bermeo. My office will call her to reschedule her lumpectomy, sentinel node biopsy for next .
== END 2017-12-05 14:20 | disposition home or self-care (01) | DRG 809 ==
LOC: ONC 13:01 → OBSVTOIN 13:01 → INTOOBSV 13:01
PROVIDERS: ADMIT Surgery; ATTEND Surgery
DX: D70.9 Neutropenia, unspecified (principal); C77.9 Secondary and unspecified malignant neoplasm of lymph node, unspecified; C50.911 Malignant neoplasm of unspecified site of right female breast; T80.212A Local infection due to central venous catheter, initial encounter; R50.81 Fever presenting with conditions classified elsewhere
CPT/HCPCS: 36415; 71045; 80048; 80053; 80202; 81003; 83605; 85025; 87040; 87086; 96361; 96365; 96367; J2543; J3370; J7050

== ENCOUNTER 2017-12-13 07:01 | Day surgery (SDC) | payer OTHER ==
[2017-12-12 10:05] VITALS: BMI 26.2
--- NOTE | 2017-12-13 09:46 | ULT ---
RIGHT BREAST ULTRASOUND: Date: 12/13/17 HISTORY: Patient is status post neoadjuvant chemotherapy for right breast cancer, which was diagnosed by a bio psy. A biopsy clip had been deployed. The abnormality was visible by ultrasound, but mammographically occult. This ultrasound was done to establish that the clip and the mass are in the same location. TECHNIQUE/FINDINGS: After informed consent was obtained, the patient was prepped and draped in a normal sterile fashion. Lateral approach was used for the biopsy. Biopsy was performed under mammographic guidance as the pat ient had had neoadjuvant chemotherapy and I was not certain that the ultrasound would still show the mass after the neoadjuvant treatment. The clip was localized without difficulty and I took the patien t to the ultrasound suite. This confirmed that the needle was directly adjacent to the mass. The mass is at this level and slightly deeper along the course of the needle. This was relayed to Dr. Ferrari . IMPRESSION: Right breast ultrasound which confirms that the clip is adjacent to the mass in question. Therefore, the mammographic localization of the clip should be more than adequate for surgical excision. POS: [facility]
--- NOTE | 2017-12-13 09:48 | MMO ---
RIGHT BREAST NEEDLE LOCALIZATION: Date: 12/13/17 HISTORY: Right breast cancer demonstrated by ultrasound directed biopsy. Patient then underwent neoadjuvant ch emotherapy and is now for needle localization prior to surgical excision. TECHNIQUE/FINDINGS: After informed consent was obtained, the patient was prepped and draped in the normal sterile fashion . Local anesthesia was obtained with 1% Xylocaine. The lateral approach was used to localize the clip . This was performed using a 7.5 cm Campbell needle. The clip was localized and subsequently the patient was taken to ultrasound to confirm that the mass and clip are in the same location as the mass is ma mmographically occult. The ultrasound confirms that the needle tip and clip are directly adjacent to the mass, and these findings were conveyed to Dr. Ferrari. The patient tolerated the procedure well. There were no immediate complications. IMPRESSION: Localization of right breast biopsy clip as discussed above. No complications of the procedure. POS: [facility]
--- NOTE | 2017-12-13 09:49 | NM ---
NUCLEAR MEDICINE LYMPHOSCINTIGRAPHY: Date: 12/13/17 HISTORY: Right breast cancer. TECHNIQUE/FINDINGS: After informed consent was obtained, the patient was prepped in the normal sterile fashion. Four sepa rate injections around the nipple were performed using a total of 440 microcuries of 99m technetium f iltered sulfur colloid. Images show activity in the axillary region. IMPRESSION: Successful lymphoscintigraphy. The patient was transferred to surgery. POS: [facility]
[2017-12-13] MEDS ORDERED: Fentanyl 250 MCG/5 ML VIAL ONE ×2 (10:34→13:45)
[2017-12-13] MEDS ORDERED: Famotidine/PF 20 mg/2ml Vial ONE (10:35)
[2017-12-13] MEDS ORDERED: Promethazine HCl 25 MG/ML VIAL ONE (10:35)
[2017-12-13 10:41] LABS: Hemoglobin 11.6 g/dL (12.0-16.0); Mean Corpuscular HGB CONC 33.3 g/dL (32.0-36.0); Mean Corpuscular Hemoglobin 31.9 pg (27.0-31.0); Mean Corpuscular Volume 95.8 fl (81.0-99.0); Mean Platelet Volume 6.9 fL (7.4-10.4); Platelet Count 231 thou/uL (130-400); RBC Distribution Width 13.4 % (11.5-14.5); Red Blood Cell (RBC) Count 3.64 mill/uL (4.20-5.40); White Blood Cell (WBC) Count 1.7 thou/uL (4.8-10.8)
[2017-12-13] MEDS ORDERED: CEFAZOLIN/Water 2 GM/20 ML SYRINGE ONE (10:44)
[2017-12-13 10:49] LABS: BHCG - Serum Negative (NEGATIVE); Pregs Control Background? CLEAR/WHITE (CLR/WHITE); Pregs Control Bar Appear? YES (CONTROL BAR)
[2017-12-13 11:04] LABS: Anion Gap 11 mmol/L (10-20); BUN (Urea Nitrogen) 15 mg/dL (7.0-18.7); Calc. Creatinine Clearance 147 mL/min (70-130); Calcium 9.5 mg/dL (7.8-10.44); Carbon Dioxide 24 mmol/L (22-29); Chloride 108 mmol/L (98-107); Estimated GFR-MDRD Greater than 90; Glucose 90 mg/dL (70-105); Potassium 3.6 mmol/L (3.5-5.1); Sodium 139 mmol/L (136-145)
[2017-12-13] MEDS ORDERED: Isosulfan Blue 50 MG/5 ML VIAL ONE (11:06)
[2017-12-13] MEDS ORDERED: Bupivacaine/Epinephrine 0.25% 30 ML VIAL ONE (11:06)
[2017-12-13] MEDS ORDERED: Midazolam HCl 2 mg/2 ml Vial ONE (11:35)
--- NOTE | 2017-12-13 15:05 | MMO ---
SPECIMEN RADIOGRAPH: Date: 12/13/17 A single specimen radiograph confirms the presence of a clip within the breast specimen. IMPRESSION: Successful localization of breast clip. POS: [facility]
[2017-12-13] MEDS ORDERED: PROPOFOL 200 MG/20 ML VIAL ONE (15:07)
[2017-12-13] MEDS ORDERED: ePHEDrine/0.9% NaCl/PF SYRINGE 50 mg/10 ml ONE (15:07)
[2017-12-13] MEDS ORDERED: Lidocaine 1% PF 5 ML VIAL ONE (15:07)
[2017-12-13] MEDS ORDERED: PHENYLEPHRINE-NS 100 MCG/ML 10 ML SYRINGE ONE (15:07)
[2017-12-13] MEDS ORDERED: Ondansetron HCl/PF 4 MG/2 ML Vial ONE (15:07)
[2017-12-13] MEDS ORDERED: HYDROcodone/Acetaminophen 5/325 mg Tablet ONE (16:00)
--- NOTE | 2017-12-13 18:27 | OP ---
DATE OF PROCEDURE: 12/13/2017 PREOPERATIVE DIAGNOSIS: Right breast cancer, status post neoadjuvant chemotherapy for biopsy proven metastasis to axillary lymph nodes. POSTOPERATIVE DIAGNOSIS: Right breast cancer, status post neoadjuvant chemotherapy for biopsy proven metastasis to axillary lymph nodes. PROCEDURES: 1. Right partial mastectomy after needle localization. 2. Right deep axillary node biopsy using sentinel node protocol. SURGEON: Francisco Ferrari M.D. ANESTHESIA: General. ESTIMATED BLOOD LOSS: Minimal. COMPLICATIONS: None. SPECIMEN: Right breast marked with two short superior, one long lateral and sent to path for final d iagnosis. There were 2 sentinel nodes sent separate for a fresh to pathology. INDICATION: The patient is a 42-year-old female who is status post biopsy of right breast mass, righ t axillary node showing breast cancer. She has already undergone neoadjuvant chemotherapy. On ultra sound, the lymph node returned to normal size. She had near complete resolution of her breast mass a s well. On the day of surgery, she underwent a preoperative placement of needle localization wire in the right breast as well as lymphoscintigraphy. TECHNIQUE: The patient was taken to the operating room and placed supine on the table. After genera l anesthetic was obtained, the right chest, neck, breast was all prepped and draped in a sterile fas ion. Curved incision made along the inferior of the hairline in the right axilla. Dissection was ta pablo down through the clavipectoral fascia. 5 mL of methylene blue dye was then infiltrated under the right nipple and massaged for 10 minutes. A blue node was found, it had high counts with the Neopro be. The counts were in the 500s, it was labeled sentinel node #1. A second area slightly increased uptake was found and sent as sentinel node as #2. The background count then dropped to near 0. The wound is irrigated. Local anesthetic is applied. The wound was closed using 3-0 Vicryl, 4-0 Monocry l, and Dermabond. Next, a transverse incision was made in the right breast. Flaps are raised superi or, medially, inferiorly, laterally around the end of the needle localization wire. The specimen mar ked two short superior, one long lateral and sent to path for final diagnosis. The specimen x-ray re vealed the clip from the biopsy be in the specimen. The wound was irrigated and closed using 3-0 Michael ryl, 4-0 Monocryl, and Dermabond. The patient was en route to recovery in stable condition. All ins trument counts, needle counts, lap counts were correct.
== END 2017-12-13 17:28 | disposition home or self-care (01) ==
LOC: SDC 07:01
PROVIDERS: ATTEND Surgery
PROC: 0HBT0ZZ Excision of Right Breast, Open Approach (ICD-10-PCS; principal; 2017-12-13)
PROC: 07B50ZX Excision of Right Axillary Lymphatic, Open Approach, Diagnostic (ICD-10-PCS; principal; 2017-12-13)
DX: C50.511 Malignant neoplasm of lower-outer quadrant of right female breast (principal); C77.3 Secondary and unspecified malignant neoplasm of axilla and upper limb lymph nodes; Z91.048 Other nonmedicinal substance allergy status; Z98.890 Other specified postprocedural states
CPT/HCPCS: 19281; 36415; 76098; 78195; 80048; 84703; 85027; 88307; 88331; 88334; 96374; A9541; J0131; J2001; J2250; J2405; J2550; J2704; J3010; Q9968; S0028

== ENCOUNTER → 2017-12-30 | Day surgery (SDC) | payer OTHER ==
[~2017-12-30] MED LIST: Heparin 1,000 UNITS/ML VIAL ONE
--- NOTE | 2017-12-30 13:18 | SPC ---
LEFT UPPER EXTREMITY PICC LINE PLACEMENT: 12/30/2017 HISTORY: Breast cancer. Chemotherapy. COMPARISON: None. FINDINGS: Informed consent for ultrasound-guided left upper extremity PICC obtained prior to the procedure. Th e left antecubital fossa is prepped and draped in the normal sterile fashion. The skin overlying the basilic vein is anesthetized with 1% buffered Lidocaine. With direct sonographic guidance, vascular access was obtained via the left basilic vein, and an 0.018 wire was advanced to the cavoatrial junc tion. Intravascular length was calculated at 44 cm, and the PICC was cut accordingly. The needle wa s removed and replaced with a peel-away sheath. The PICC was advanced over the wire. The wire and p eel-away sheath were removed. The tip of the catheter overlies the cavoatrial junction. Both ports flushed well, and the catheter is ready for use. EXPOSURE DATA: Fluoroscopic time 0.0 minutes with 481 mGy per cm2. IMPRESSION: Successful ultrasound-guided dual-lumen left upper extremity peripherally inserted central catheter p lacement. POS: [facility]
== END ==
LOC: SPEC 09:24
PROVIDERS: ATTEND Internal Medicine Hematology & Oncology
PROC: 02HV33Z Insertion of Infusion Device into Superior Vena Cava, Percutaneous Approach (ICD-10-PCS; principal; 2017-12-30)
PROC: B548ZZA Ultrasonography of Superior Vena Cava, Guidance (ICD-10-PCS; principal; 2017-12-30)
DX: C50.411 Malignant neoplasm of upper-outer quadrant of right female breast (principal); C79.89 Secondary malignant neoplasm of other specified sites
CPT/HCPCS: 36569; 93306; C1751; J1644

== ENCOUNTER 2018-04-02 16:48 | Outpatient (CLI) | payer OTHER ==
--- NOTE | 2018-04-02 17:10 | RAD ---
RADIOGRAPH LEFT ELBOW 2 VIEWS: 04/02/18 HISTORY: 43-year-old female with right elbow pain for eight weeks. FINDINGS: No evidence of distention of the joint capsule. The joint spaces are maintained without erosions or l arge osteophytes. Bone mineralization is normal. No fracture identified. IMPRESSION: Negative. POS: [facility]
== END 2018-04-02 16:49 | disposition home or self-care (01) ==
LOC: RAD 16:48
PROVIDERS: ATTEND Radiology Radiation Oncology
DX: M25.522 Pain in left elbow (principal); Z85.3 Personal history of malignant neoplasm of breast

== ENCOUNTER 2018-10-01 07:39 | Outpatient (CLI) | payer OTHER ==
--- NOTE | 2018-10-01 10:08 | CT ---
CHEST CT WITH CONTRAST ABDOMEN CT WITH CONTRAST: History: Past medical history of breast cancer. Examination requested to evaluate for tumor recurrenc e, patient being cancer free. Patient has right sided rib pain. Previous right lumpectomy. Comparison: No prior CTs noted on PACS system. Therefore, direct comparison cannot be made. Correlation: PET imaging, 07-23-17. Technique: Chest and abdomen CT performed with IV contrast. Coronal reformatted images are submitted for interpretation. FINDINGS: There does appear to be post-operative change in the right breast and right axilla. There is a hypode nsity in the right axilla measuring 1.1 x 1.0 cm. The possibility of residual or recurrent tumor/lymp h node involvement cannot be completely excluded. This hypodensity does correspond to a previously no sushant enlarged lymph node, as demonstrated on the previous PET study. Repeat PET images may be benefici al. No mediastinal mass, lymphadenopathy, or hematoma. Heart size is within normal limits. No pericardial effusion. The thoracic and abdominal aorta have a normal caliber. No aortic fat stranding. Trachea and central bronchi are patent. There are irregular opacities in the right upper lobe which were not present on the CT used for atten uation correction on the previous PET study. These opacities are presumed to be change from previous external beam radiation therapy. A spiculated mass/irregular marginated mass is not appreciated in th e right or left lung. No suspicious nodules. No pleural effusion or pneumothorax. CT ABDOMEN: Portal vein is patent. Unremarkable gallbladder. Liver, spleen, pancreas and adrenal glands have appropriate enhancement and attenuation. Symmetric enhancement of the kidneys. No obstructive uropathy. No mesenteric mass, lymphadenopathy, free air or free fluid. Visualized alimentary canal is unremarka ble. No lytic or blastic lesions in the osseous structures. IMPRESSION: 1. Post-operative change in the right breast. 2. Residual soft tissue mass in the right axilla which may represent post treatment change of a previ ously identified enlarged right axillary lymph node. Nevertheless, correlation with PET imaging may b e beneficial. POS: [facility]
== END 2018-10-01 07:40 | disposition home or self-care (01) ==
LOC: BICCT 07:39
PROVIDERS: ATTEND Internal Medicine Hematology & Oncology
DX: Z08 Encounter for follow-up examination after completed treatment for malignant neoplasm (principal); E55.9 Vitamin D deficiency, unspecified; R11.2 Nausea with vomiting, unspecified; R59.0 Localized enlarged lymph nodes; Z98.890 Other specified postprocedural states; Z85.3 Personal history of malignant neoplasm of breast; Z80.3 Family history of malignant neoplasm of breast
CPT/HCPCS: 71260; 74160; 77066; G0279

== ENCOUNTER 2019-07-28 12:47 | Outpatient (CLI) | payer OTHER ==
--- NOTE | 2019-07-28 14:37 | MRI ---
MRI BRAIN WITH AND WITHOUT CONTRAST: INDICATIONS: Brain lab protocol is followed. Meningioma. COMPARISON: MRI brain 03/20/2019. FINDINGS: This dural based small, 8 mm enhancing mass anterior right frontal lobe, abutting the falx, in a para sagittal location, is again noted and is unchanged in size and appearance. No other enhancing abnormality identified. Ventricles remain normal in size and position. No evidence of restricted diffusion. No mass, edema or white matter abnormality. No interval change. IMPRESSION: The tiny dural based extra-axial mass seen anteriorly, right frontal lobe, parasagittal location, is unchanged. POS: [facility]
== END 2019-07-28 12:48 | disposition home or self-care (01) ==
LOC: MRI 12:47
PROVIDERS: ATTEND Neurological Surgery
DX: D32.9 Benign neoplasm of meninges, unspecified (principal); G93.89 Other specified disorders of brain
CPT/HCPCS: 70553

== ENCOUNTER 2019-09-24 14:12 | Outpatient (CLI) | payer OTHER ==
--- NOTE | 2019-09-24 15:25 | MMO ---
Bilateral MAMMO Bilat Diag [facility]N. CLINICAL HISTORY: Patient is 44 years old and is seen for diagnostic exam. The patient has the following family history of breast cancer: mother. The patient has a history of right Lumpectomy in December, - malignant and right Ultrasound Guided Core Biopsy in July, - malignant. VIEWS: The views performed were: bilateral craniocaudal with tomosynthesis; bilateral mediolateral oblique with tomosynthesis; and bilateral mediolateral with tomosynthesis. FILMS COMPARED: The present examination has been compared to prior imaging studies performed at [facility] on 10/01/2018 and 09/24/2019, and at [facility] on 12/13/2017. This study has been interpreted with the assistance of computer-aided detection. MAMMOGRAM FINDINGS: The breasts are heterogeneously dense, which could obscure a lesion on mammography. Finding 1: There is a stable post-surgical scar seen in the right breast. Finding 2: There are benign appearing calcifications seen in the right breast. Finding 3: No mass or architectural distortion is seen in region of palpable concern left breast. No sonographic abnormality is seen. There are no suspicious masses, suspicious calcifications, or new areas of architectural distortion. IMPRESSION: FINDING 1: STABLE POST-SURGICAL SCAR IN THE RIGHT BREAST IS BENIGN. FINDING 2: CALCIFICATIONS IN THE RIGHT BREAST ARE BENIGN. FINDING 3: FINDING IN THE LEFT BREAST IS BENIGN. PATIENT'S AREA OF PALPABLE CONCERN SHOULD BE FURTHER MANAGED CLINICALLY INCLUDING FOLLOW UP INDICATED. A ROUTINE FOLLOW-UP MAMMOGRAM IN 1 YEAR IS RECOMMENDED. THE RESULTS OF THIS EXAM WERE SENT TO THE PATIENT. ACR BI-RADS Category 2 - Benign finding MAMMOGRAPHY NOTE: 1. A negative mammogram report should not delay a biopsy if a dominant of clinically suspicious mass is present. 2. Approximately 10% to 15% of breast cancers are not detected by mammography. 3. Adenosis and dense breasts may obscure an underlying neoplasm. Reported by: YANCI FERNANDEZ MD Electonically Signed: [id number]
--- NOTE | 2019-09-24 15:27 | ULT ---
LIMITED ULTRASOUND LEFT BREAST: HISTORY: New palpable abnormality at the 7 o'clock position, left breast. FINDINGS: Limited sonographic evaluation of the left breast at the 7 o'clock position was performed, which is i n the region of the patient's palpable abnormality. Real-time imaging was also performed. No solid or cystic mass is seen in the left breast to correspond to the patient's area of palpable concern. No m ammographic abnormality is seen in this region on mammograms also obtained on this date. IMPRESSION: 1. BI-RADS category 2 - benign findings. Routine annual mammographic screening is recommended. 2. The patient's area of palpable concern should be further managed clinically and follow-up evaluati on can be performed if the area of palpable concern changes. POS: [facility]
== END 2019-09-24 14:13 | disposition home or self-care (01) ==
LOC: BICMAMMO 14:12
PROVIDERS: ATTEND Internal Medicine Hematology & Oncology
DX: C50.911 Malignant neoplasm of unspecified site of right female breast (principal); R92.1 Mammographic calcification found on diagnostic imaging of breast; L90.5 Scar conditions and fibrosis of skin; Z80.3 Family history of malignant neoplasm of breast
CPT/HCPCS: 77066; G0279

== ENCOUNTER 2020-01-11 09:57 | Outpatient (CLI) | payer OTHER ==
--- NOTE | 2020-01-11 11:00 | BD ---
BONE DENSITOMETRY USING DEXA: Date: 01/11/2020 HISTORY: Other specified menopausal and perimenopausal disorders. FINDINGS: Lumbar Spine: BMD (g/cm2) L1 0.929 T-Score: -0.6 Z-Score: -0.2 L2 0.990 T-Score: -0.3 Z-Score: 0.0 L3 0.978 T-Score: -1.0 Z-Score: -0.6 L4 0.889 T-Score: -1.6 Z-Score: -1.2 L1-L4 0.946 T-Score: -0.9 Z-Score: -0.6 Femoral Neck: 0.872 T-Score: 0.2 Z-Score: 0.6 Total Femur: 0.982 T-Score: -0. Z-Score: 0.6 IMPRESSION: Normal bone mineral density. POS: [facility]
== END 2020-01-11 09:58 | disposition home or self-care (01) ==
LOC: BICMAMMO 09:57
PROVIDERS: ATTEND Internal Medicine Hematology & Oncology
DX: Z13.820 Encounter for screening for osteoporosis (principal); N95.8 Other specified menopausal and perimenopausal disorders; Z78.0 Asymptomatic menopausal state
CPT/HCPCS: 77080

== ENCOUNTER 2020-08-23 11:05 | Outpatient (CLI) | payer OTHER ==
--- NOTE | 2020-08-23 13:00 | MRI ---
MRI brain with and without IV contrast. Multiplanar and multisequential imaging of brain obtained according to protocol. INDICATIONS: Meningioma follow-up COMPARISON: 07/28/2019 MRI brain FINDINGS: Ventricles have normal size shape and position. No evidence of restricted diffusion. No significant white matter abnormality. The 8 mm enhancing mass seen along the dural surface anterior right frontal lobe which is extra-axial in location is again seen and is unchanged. This has parasagittal location and abuts the anterior falx to the right of midline. No other abnormal enhancement. Intracranial internal carotid arteries, proximal cerebral arteries, and basilar arteries show normal flow voids. Dural venous sinuses appear patent. Visualized paranasal sinuses and mastoids appear clear. Orbits appear unremarkable. Bony calvarium and soft tissues of the scalp appear unremarkable. IMPRESSION: The enhancing extra-axial dural based nodule anterior right frontal region parasagittal location is s table.
[2020-08-23] MEDS ORDERED: Magnevist 469MG/ML 20 ML VIAL ONE ×2 (13:15)
--- NOTE | 2020-08-23 13:24 | MRI ---
EXAM: MRI thoracic spine with and without contrast INDICATIONS: Breast cancer. Mid back pain. COMPARISON: None. FINDINGS: Thoracic vertebra maintain normal height and alignment. Disc spaces are preserved. No evide nce of vertebral body edema. Postcontrast sagittal fat sat imaging shows heterogeneous enhancement of the T3 vertebra. No other abnormal enhancement identified. No evidence of disc bulge or disc protrusion. No central canal stenosis. Thoracic cord is unremarkabl e. IMPRESSION: 1. Mild heterogeneous enhancement of the T3 vertebra seen only on postcontrast sagittal imaging. [place] static involvement cannot be excluded. Recommend further evaluation with bone scan.
== END 2020-08-23 11:06 | disposition home or self-care (01) ==
LOC: MRI 11:05
PROVIDERS: ATTEND Internal Medicine Hematology & Oncology
DX: D32.9 Benign neoplasm of meninges, unspecified (principal); C50.411 Malignant neoplasm of upper-outer quadrant of right female breast; M54.9 Dorsalgia, unspecified; T38.6X5A Adverse effect of antigonadotrophins, antiestrogens, antiandrogens, not elsewhere classified, initial encounter; G93.89 Other specified disorders of brain
CPT/HCPCS: 70553; 72157; A9579

== ENCOUNTER 2020-08-25 08:19 | Outpatient (CLI) | payer OTHER ==
--- NOTE | 2020-08-25 11:45 | PET ---
Exam: PET scan with CT attenuation correction HISTORY: Malignant neoplasm of the upper outer right breast. COMPARISON: 07/23/2017. TECHNIQUE: PET scan with CT attenuation correction was performed from the base of the brain to the pr oximal thighs following the intravenous administration of 10.8 mCi of [id number]. FINDINGS: Head and neck: No abnormal FDG localization. Chest: No abnormal FDG localization. There is FDG avidity associated with postoperative change in the right breast. Maximum SUV is 1.6. There is FDG avidity associated with the anterior right breast, with a maximum SUV of 1.4. Findings in the right breast and the anterior right chest are representati ve of postsurgical/posttreatment change. There is no evidence of significant FDG avidity to suggests metastases or malignancy in the chest. Abdomen and pelvis: No abnormal FDG localization. Osseous structures: There is no abnormal FDG localization in the visualized osseous structures. CT us ed for attenuation correction demonstrates slight sclerosis of the T5 vertebral body without significant FDG avidity. At the T3 level, there is no evidence of abnormal FDG localization. Review o f the previous MRI demonstrates essentially appropriate T1 marrow signal intensity on the sagittal T1-weighted images. There is no significant STIR hyperintensity. Increased signal intensity noted in the sagittal fat saturated T1-weighted images is likely artifactual and may be secondary to poor fat suppression. IMPRESSION: 1. No evidence of osseous metastases. 2. Postsurgical changes in the right breast and right axilla. 3. No evidence of recurrence. Transcribed Date/Time: 08/25/2020 1:44 PM
== END 2020-08-25 08:20 | disposition home or self-care (01) ==
LOC: PET 08:19
PROVIDERS: ATTEND Internal Medicine Hematology & Oncology
DX: C50.411 Malignant neoplasm of upper-outer quadrant of right female breast (principal)
CPT/HCPCS: 78815; A9552

== ENCOUNTER 2021-01-05 08:18 | Outpatient (CLI) | payer OTHER | END 2021-01-05 08:19 | disposition home or self-care (01) | LOC: BICMAMMO 08:18 | PROVIDERS: ATTEND Internal Medicine Hematology & Oncology | DX: Z08 Encounter for follow-up examination after completed treatment for malignant neoplasm (principal); Z85.3 Personal history of malignant neoplasm of breast | CPT/HCPCS: 77066; G0279 ==

== ENCOUNTER 2021-11-09 10:36 | Outpatient (CLI) | payer BC | END 2021-11-09 10:37 | disposition home or self-care (01) | LOC: MRI 10:36 | PROVIDERS: ATTEND Neurological Surgery | DX: D32.0 Benign neoplasm of cerebral meninges (principal) | CPT/HCPCS: 70553 ==

== ENCOUNTER 2022-01-30 14:43 | Outpatient (CLI) | payer BC | END 2022-01-30 14:44 | disposition home or self-care (01) | LOC: BICMAMMO 14:43 | PROVIDERS: ATTEND Nurse Practitioner Family | DX: Z48.817 Encounter for surgical aftercare following surgery on the skin and subcutaneous tissue (principal); Z98.890 Other specified postprocedural states | CPT/HCPCS: 77066; G0279 ==

== ENCOUNTER 2022-08-15 15:46 | Outpatient (CLI) | payer BC | END 2022-08-15 15:47 | disposition home or self-care (01) | LOC: BICULT 15:46 | PROVIDERS: ATTEND Family Medicine | DX: M79.89 Other specified soft tissue disorders (principal) | CPT/HCPCS: 76999 ==

== ENCOUNTER 2023-04-18 08:08 | Outpatient (CLI) | payer BC | END 2023-04-18 08:09 | disposition home or self-care (01) | LOC: BICMAMMO 08:08 | PROVIDERS: ATTEND Family Medicine | DX: Z08 Encounter for follow-up examination after completed treatment for malignant neoplasm (principal); Z13.820 Encounter for screening for osteoporosis; Z78.0 Asymptomatic menopausal state; Z98.890 Other specified postprocedural states | CPT/HCPCS: 77066; 77080; G0279 ==

== ENCOUNTER 2023-08-05 13:06 | Outpatient (CLI) | payer BC | END 2023-08-05 13:07 | disposition home or self-care (01) | LOC: SCSMRI 13:06 | PROVIDERS: ATTEND Neurological Surgery | DX: D32.0 Benign neoplasm of cerebral meninges (principal) | CPT/HCPCS: 70553 ==

== ENCOUNTER 2025-05-26 13:28 | Outpatient (CLI) | payer BC | END 2025-05-26 13:29 | disposition home or self-care (01) | LOC: BICMAMMO 13:28 | PROVIDERS: ATTEND Family Medicine | DX: Z12.31 Encounter for screening mammogram for malignant neoplasm of breast (principal); Z78.0 Asymptomatic menopausal state; Z80.3 Family history of malignant neoplasm of breast; Z98.890 Other specified postprocedural states | CPT/HCPCS: 77063; 77067; 77080 ==